=== PATIENT | male | born 1950 | race African-American/Black ===

== ENCOUNTER 2016-06-07 11:19 | Emergency (ER) | payer OTHER ==
[~2016-06-07 11:19] MED LIST: Sodium Chloride 0.9% 1,000 ML BAG ONE
[2016-06-07] MEDS ORDERED: Ondansetron HCl/PF 4 MG/2 ML Vial ONE (11:47)
[2016-06-07 11:50] LABS: #Basophils 0.1 thou/uL (0.0-0.2); #Lymphocytes 1.1 thou/uL (1.20-3.40); #Monocytes 0.7 thou/uL (0.11-0.59); #Neutrophils 8.4 thou/uL (1.40-6.50); %Basophils 1.4 % (0.0-1.0); %Lymphocytes 10.5 % (21.0-51.0); Hemoglobin 16.8 g/dL (14.0-18.0); Mean Corpuscular Hemoglobin 30.4 pg (27.0-31.0); Mean Corpuscular Volume 94.8 fl (80.0-94.0); Mean Platelet Volume 7.8 fL (7.4-10.4); Platelet Count 234 thou/uL (130-400); RBC Distribution Width 13.3 % (11.5-14.5); Red Blood Cell (RBC) Count 5.53 mill/uL (4.70-6.10); White Blood Cell (WBC) Count 10.3 thou/uL (4.8-10.8)
[2016-06-07 12:20] LABS: Lactic Acid 1.3 mmol/L (0.5-2.2)
[2016-06-07 12:24] LABS: ALT (SGPT) 66 U/L (0-55); AST (SGOT) 39 U/L (5-34); Albumin 4.5 g/dL (3.4-4.8); Alkaline Phosphatase 73 U/L (40-150); Anion Gap 18 mmol/L (10-20); BUN (Urea Nitrogen) 15 mg/dL (8.4-25.7); Bilirubin, Total 1.1 mg/dL (0.2-1.2); Calc. Creatinine Clearance 0 mL/min (70-130); Calcium 9.2 mg/dL (7.8-10.44); Carbon Dioxide 21 mmol/L (23-31); Chloride 102 mmol/L (98-107); Estimated GFR-MDRD 77; Globulin 3.4 g/dL (2.4-3.5); Glucose 122 mg/dL (80-115); Lipase 24 U/L (8-78); Magnesium 2.4 mg/dL (1.6-2.6); Potassium 3.9 mmol/L (3.5-5.1); Protein, Total 7.9 g/dL (5.8-8.1); Sodium 137 mmol/L (136-145)
--- NOTE | 2016-06-07 13:31 | ERRECORD ---
[facility] EMERGENCY RECORD HPI NAUSEA/VOMITING/DIARRHEA (11:51 ABUS) CHIEF COMPLAINT: Patient presents for evaluation of nausea, Patient presents for evaluation of vomiting, Patient presents for evaluation of diarrhea, Patient presents for evaluation of dehydration. HISTORIAN: History provided by patient, 65 yr old M with PMH of BPH who comes in at the referral for Dr Law with concerns for dehydration in context of N/V/D x 2 days. No fever, recent travel. LOCATION MALE: No localizing symptoms. QUALITY: Unable to describe the quality of the pain. SEVERITY: Currently symptoms are moderate, Current severity of pain rated as 0/10. TIME COURSE: Gradual onset of symptoms, 2, days priror to arrival, Symptoms are worsening. ASSOCIATED WITH MALE: No associated symptoms. EXACERBATED BY: Patient's condition exacerbated by nothing. RELIEVED BY: Patient's condition relieved by nothing. ROS (11:52 ABUS) CONSTITUTIONAL: Negative constitutional review of systems, Historian denies chills, denies fever. ENT: Negative ears, nose, throat review of systems, Historian denies rhinorrhea, denies sore throat. CARDIOVASCULAR: Negative cardiovascular review of systems, Historian denies chest pain, denies palpitations. RESPIRATORY: Negative respiratory review of systems, Historian denies cough, denies shortness of breath. GI: Historian reports diarrhea, reports nausea, reports vomiting. MUSCULOSKELETAL: Negative musculoskeletal review of systems, Historian denies back pain, denies fall, denies injury, denies neck pain. SKIN: Negative skin review of systems, Historian denies rash, denies skin changes. NEUROLOGIC: Negative neurologic review of systems, Historian denies headache. PAST MEDICAL HISTORY (11:34 CJ) MEDICAL HISTORY: Flu vaccine up to date, Tetanus not up to date, Pneumococcal vaccine not up to date, ENLARGED PROSTATE. MALE SURGICAL HISTORY: "AKALASIA SX"; ESOPHAGUS SX. PSYCHIATRIC HISTORY: Notes: DENIES. SOCIAL HISTORY: Patient denies alcohol use, Patient denies drug use, Patient has no smoking history. KNOWN ALLERGIES Darvocet-N 100 CURRENT MEDICATIONS (11:36 [facility]) &a-1R&a+25V*p+0X*[id number]*c202B*c15G*c2P*p-0X&a-25V&a+1R Name: Dennis Cohen : 1950 M65 MedRec: [id number] AcctNum: [id number] Prepared: FriJun 07, 2016 13:42 by Interface Page 1 of 3 pMD [facility] EMERGENCY RECORD aspirin: TABLET : Strength - 81 mg : ORAL Patient Dose: 81 mg Oral once a day. Flomax: CAPSULE, EXT RELEASE 24 HR : Strength - 0.4 mg : ORAL Patient Dose: 0.4 mg Oral once a day. VITAL SIGNS VITAL SIGNS: BP: 137/78, Pulse: 86, Resp: 18, Temp: 98.2 (Tympanic), O2 sat: 97 on Room Air, Time: 06/07/2016 11:29. (11:29 SFRE) Pain: 0, Time: 06/07/2016 11:31. (11:31 CJEF) BP: 133/76, Pulse: 61, Resp: 19, Pain: 0, O2 sat: 95 on Room Air, Time: 06/07/2016 11:52. (11:52 CJEF) BP: 156/84, Pulse: 68, Resp: 17, Pain: 0, O2 sat: 99 on Room Air, Time: 06/07/2016 12:28. (12:28 CJEF) BP: 139/74, Pulse: 67, Resp: 18, O2 sat: 100 on Room Air, Time: 06/07/2016 13:14. (13:14 CJEF) BP: 126/73, Pulse: 64, Resp: 19, Temp: 98.5 (Oral), Pain: 0, O2 sat: 100 on Room Air, Time: 06/07/2016 13:38. (13:38 CJEF) PHYSICAL EXAM (11:52 ABUS) CONSTITUTIONAL: Vital signs reviewed, Patient afebrile, Pulse normal, Blood pressure normal, Respiratory rate normal, Patient appears non toxic, Patient appears pain free, Patient alert and oriented to person, place and time. NECK: Neck exam normal, Neck exam included findings of normal range of motion, Trachea midline, no meningeal signs, no cervical adenopathy, no tenderness. RESPIRATORY CHEST: Respiratory and chest exam normal, Respiratory exam included findings of no respiratory distress, Breath sounds clear. CARDIOVASCULAR: Cardiovascular assessment normal, Cardiovascular exam included findings of heart rate regular rate and rhythm, Heart sounds normal. ABDOMEN MALE: Abdominal exam included findings of abdomen nontender, Bowel sounds normal, no distension, no mass, no pulsatile masses, no peritoneal signs, no rigidity, no guarding, no rebound, Rovsing's sign absent. BACK: Back exam normal, Back exam included findings of normal inspection, range of motion normal, no tenderness. NEURO: Neuro exam normal, Neuro exam findings include patient oriented to person, place and time, Speech normal, Gait normal. SKIN: Skin exam normal, Skin exam included findings of skin warm, dry, and normal in color, no rash. MEDICATION ADMINISTRATION SUMMARY Drug Name: *sodium chloride 0.9 % intravenous, Dose Ordered: 1 L, Route: IV Fluid Infusion, Status: Given, Time: 12:37 06/07/2016, &a-1R&a+25V*p+0X*l9121B*c202B*c15G*c2P*p-0X&a-25V&a+1R Name: Dennis Cohen : 1950 M65 MedRec: [id number] AcctNum: [id number] Prepared: FriJun 07, 2016 13:42 by Interface Page 2 of 3 pMD [facility] EMERGENCY RECORD Drug Name: *sodium chloride 0.9 % intravenous, Dose Ordered: 1 L, Route: IV Fluid Infusion, Status: Given, Time: 11:51 06/07/2016, Drug Name: Zofran intravenous, Dose Ordered: 4 mg, Route: IV Push, Status: Given, Time: 11:50 06/07/2016, *Additional information available in notes, Detailed record available in Medication Service section. DOCTOR NOTES (11:53 ABUS) TEXT: 65 yr old M with PMH of BPH who comes in at the referral for Dr Law with concerns for dehydration in context of N/V/D x 2 days Exam: Dry mucous membranes DDX: dehydration, viral gastroenteritis, gastritis, electrolyte abnormality Plan: IV, IVF, antiemetics, labs, reassess Update: Pt feels better and wants to go home with return precautions. PROBLEM LIST No recorded problems DIAGNOSIS (13:24 ABUS) FINAL: PRIMARY: Nausea with vomiting. PRESCRIPTION (13:23 ABUS) promethazine oral: TABLET : 25 mg : ORAL : Quantity: 1 Unit: tab(s) Route: ORAL Schedule: every 8 hours PRN Dispense: 5 Unit: tab(s) May substitute. Refills: No Refills . NOTES: No Refills. Zofran ODT: TABLET,DISINTEGRATING : 4 mg : ORAL : Quantity: 1 Unit: tab(s) Route: ORAL Schedule: every 8 hours PRN Dispense: 5 Unit: tab(s) May substitute. Refills: No Refills . NOTES: ^s=No Refills No Refills. DISPOSITION PATIENT: Disposition Type: Discharge, Disposition: *Discharge Home, Condition: Good. (13:24 ABUS) Patient left the department. (13:38 CJDRU) Romano: SHELIA=MD Fidel, Ilya LAWRENCE=SAMMIE Melendrez, Ana Laura SFRE=SAMMIE Corado, Ligia &a-1R&a+25V*p+0X*[id number]*c202B*c15G*c2P*p-0X&a-25V&a+1R Name: Dennis Cohen Ag : 1950 M65 MedRec: [id number] AcctNum: [id number] Prepared: FriJun 07, 2016 13:42 by Interface Page 3 of 3 pMD MTDD
[2016-06-07 13:33] LABS: CKMB 0.9 ng/mL (0-6.6); Troponin I Less than 0.010 ng/mL (< 0.028)
--- NOTE | 2016-06-07 13:38 | PICIS ---
[facility] EMERGENCY RECORD TRIAGE (11:30 SFRE) TRIAGE NOTES: SENT FOR N/V/D X 1 DAY. (11:30 SFRE) PATIENT: NAME: Dennis Cohen, AGE: 65, GENDER: male, : Fri1950, TIME OF GREET: FriJun 07, 2016 11:23, PREFERRED LANGUAGE: German, ETHNICITY: Not or , ECODE BILLING MAP: [facility], SSN: [id number], Zip Code: [address], KG WEIGHT: 87.54, PHONE: CELL, , , PERSON ID: [id number], PCP: fatoumata. (11:30 SFRE) COMPLAINT: VOMMITING, DIARRHEA. (11:30 SFRE) ADMISSION: URGENCY: 3 Urgent, ADMISSION SOURCE: Home, TRANSPORT: Walk-in, BED: ED -01. (11:30 SFRE) ASSESSMENT: Assessment: PT REPORTS N/V/D THAT STARTED YESTERDAY. PT VOMITED X4 TODAY. PT WAS SENT TO ER BY PCP FOR EVALUATION. PT REPORTS SLIGHT NAUSEA AT THE TIME OF VISIT. PT DENIES ANY PAIN,. (11:34 CJEF) PAIN: No complaint of pain. (11:34 CJEF) IMMUNIZATIONS: Flu vaccine up to date, Tetanus not up to date, Pneumococcal vaccine not up to date. (11:34 CJEF) SIRS SCORING: Heart Rate 55-109 (0), Temp range 96.8-101.1 (0), respiratory rate 12-24 (0), Mental Status altered: no (0), Yes, Infection or Suspected Infection. (11:34 CJEF) TRIAGE SCREENING: Patient denies suicidal ideation, Patient denies presence of domestic violence. (11:34 CJEF) PROVIDERS: TRIAGE NURSE: Ligia Corado RN. (11:30 SFRE) VITAL SIGNS: BP 137/78, Pulse 86, Resp 18, Temp 98.2, (Tympanic), O2 Sat 97, on Room Air, Time 06/07/2016 11:29. (11:29 SFRE) Pain 0, Time 06/07/2016 11:31. (11:31 CJEF) PREVIOUS VISIT ALLERGIES: Darvocet-N 100. (11:30 SFRE) Darvocet-N 100. (11:34 CJEF) KNOWN ALLERGIES Darvocet-N 100 CURRENT MEDICATIONS (11:36 CJEF) aspirin: TABLET : Strength - 81 mg : ORAL Patient Dose: 81 mg Oral once a day. Flomax: CAPSULE, EXT RELEASE 24 HR : Strength - 0.4 mg : ORAL Patient Dose: 0.4 mg Oral once a day. VITAL SIGNS VITAL SIGNS: BP: 137/78, Pulse: 86, Resp: 18, Temp: 98.2 (Tympanic), O2 sat: 97 on Room Air, Time: 06/07/2016 11:29. (11:29 SFRE) Pain: 0, Time: 06/07/2016 11:31. (11:31 CJEF) BP: 133/76, Pulse: 61, Resp: 19, Pain: 0, O2 sat: 95 on Room Air, Time: 06/07/2016 11:52. (11:52 CJEF) &a-1R&a+25V*p+0X*s3137L*c202B*c15G*c2P*p-0X&a-25V&a+1R Name: Dennis Cohen : 1950 M65 MedRec: [id number] AcctNum: [id number] Prepared: FriJun 07, 2016 13:49 by Interface Page 1 of 10 pMD [facility] EMERGENCY RECORD BP: 156/84, Pulse: 68, Resp: 17, Pain: 0, O2 sat: 99 on Room Air, Time: 06/07/2016 12:28. (12:28 CJEF) BP: 139/74, Pulse: 67, Resp: 18, O2 sat: 100 on Room Air, Time: 06/07/2016 13:14. (13:14 CJEF) BP: 126/73, Pulse: 64, Resp: 19, Temp: 98.5 (Oral), Pain: 0, O2 sat: 100 on Room Air, Time: 06/07/2016 13:38. (13:38 CJEF) NURSING ASSESSMENT: ABDOMEN (11:34 CJEF) CONSTITUTIONAL: Complex assessment performed, Patient arrives, via hospital wheelchair, Gait steady, History obtained from patient, Patient appears, generally ill, Patient cooperative, Patient alert, Oriented to person, place and time, Skin warm, Skin dry, Skin normal in color, Mucous membranes pink, Mucous membranes moist, Patient is well-groomed, PT REPORTS N/V/D THAT STARTED YESTERDAY. PT VOMITED X4 TODAY. PT WAS SENT TO ER BY PCP FOR EVALUATION. PT REPORTS SLIGHT NAUSEA AT THE TIME OF VISIT. PT DENIES ANY PAIN,. PAIN: Patient rates pain as 0 out of 10. ABDOMEN: Abdomen assessment findings include abdomen symmetrical, Abdomen soft, non-tender, Associated with nausea, Associated with vomiting, history of vomiting, Number of times: 4, Associated with diarrhea, watery, Associated with appetite change, decrease. GENITOURINARY MALE: no associated urinary complaints. NOTES: Patient tolerated procedure well. SAFETY: Side rails up, Cart/Stretcher in lowest position, Family at bedside, Call light within reach, Hospital ID band on. NURSING ASSESSMENT: FALL RISK (11:36 CJEF) FALL RISK: Total score 0, No risk for fall. HENDRICH II FALL RISK: Able to rise in a single movement; no loss of balance with steps(0), Total score 0, Score less than 5. Patient not high risk for falls. NURSING ASSESSMENT: SKIN (11:36 CJEF) SKIN: Skin assessment findings include skin warm, Skin dry, Skin normal in color. CANDY SCALE: (4) Sensory perception has no impairment, (4) Skin is rarely moist, (4) Patient walks frequently, (4) No mobility limitations, (3) Adequate nutrition, (3) Patient has no apparent problem moving, Candy Risk Total: 22. NOTES: Patient tolerated procedure well. SAFETY: Side rails up, Cart/Stretcher in lowest position, Family at bedside, Call light within reach, Hospital ID band on. NURSING PROCEDURE: BEDSIDE SIRS TESTING (11:52 CJEF) SCORES: Heart Rate 55-109 (0), Temp range 96.8-101.1 (0), respiratory rate 12-24 (0), Mental Status altered: no (0), Yes, Infection or Suspected Infection. &a-1R&a+25V*p+0X*x6503H*c202B*c15G*c2P*p-0X&a-25V&a+1R Name: Dennis Cohen : 1950 M65 MedRec: [id number] AcctNum: [id number] Prepared: FriJun 07, 2016 13:49 by Interface Page 2 of 10 D [facility] EMERGENCY RECORD SIRS: Yes, Infection or Suspected Infection. NURSING PROCEDURE: FOOD EDITOR (11:30 CJEF) PATIENT IDENTIFIER: Patient actively involved in identification process, Patient's identity verified by patient stating name, Patient's identity verified by patient stating date. FOOD EDITOR: Cardiac monitoring indicated for N/V, Patient placed on court recording monitor, Heart rate: 64, showing normal sinus rhythm, Patient placed on non-invasive blood pressure monitor, Patient placed on continuous pulse oximetry, Adult/pediatric oxisensor applied. FOLLOW-UP: After procedure, alarms set and on, After procedure, patient tolerating monitoring. NOTES: Patient tolerated procedure well. SAFETY: Side rails up, Cart/Stretcher in lowest position, Family at bedside, Call light within reach, Hospital ID band on. NURSING PROCEDURE: DISCHARGE NOTE (13:38 CJ) DISCHARGE: Patient discharged to home, ambulating without assistance, family driving, accompanied by //partner, Summary of Care printed/ provided, Patient requested and was provided an electronic copy of Discharge Instructions, Transition record given to patient, Discharge instructions given to patient, Simple or moderate discharge teaching performed, Prescriptions given and instructions on side effects given, Medication reconciliation form given, Above person(s) verbalized understanding of discharge instructions and follow-up care, Patient treated and evaluated by physician. BELONGINGS: Belongings remain with patient. NOTES: Patient tolerated procedure well. SAFETY: Side rails up, Cart/Stretcher in lowest position, Family at bedside, Call light within reach, Hospital ID band on. NURSING PROCEDURE: IV PATIENT IDENITIFIER: Patient actively involved in identification process, Patient's identity verified by patient stating name, Patient's identity verified by patient stating date. (11:46 CJEF) IV SITE 1: IV therapy indicated for hydration, IV therapy indicated for medication administration, IV established, to the right antecubital, using an 18 gauge catheter, in one attempt, IV site prepped with CHLORAPREP, Saline lock established, Flushed with normal saline (mls): 10, Labs drawn at time of placement, labeled in the presence of the patient and sent to lab. (11:46 CJEF) FOLLOW-UP SITE 1: After procedure, 2x2 dressing applied, IV discontinued, due to patient being discharged, catheter intact. (13:36 CJEF) NOTES: Patient tolerated procedure well. (11:46 CJEF) SAFETY: Side rails up, Cart/Stretcher in lowest position, Family at bedside, Call light within reach, Hospital ID band on. (11:46 &a-1R&a+25V*p+0X*v0281S*c202B*c15G*c2P*p-0X&a-25V&a+1R Name: Dennis Cohen : 1950 M65 MedRec: [id number] AcctNum: [id number] Prepared: FriJun 07, 2016 13:49 by Interface Page 3 of 10 D [facility] EMERGENCY RECORD CJEF) NURSING PROCEDURE: NURSE NOTES NURSES NOTES: Patient in no apparent distress, Patient resting quietly, Notes: PT RESTING IN BED QUIETLY WITH FAMILY AT BEDSIDE. NO DISTRESS NOTED. (11:51 CJEF) Patient in no apparent distress, Patient resting quietly, Warm blanket given to patient, Notes: PT RESTING IN BED QUIETLY WITH FAMILY AT BEDSIDE. NO DISTRESS NOTED. (12:29 CJEF) Patient in no apparent distress, Patient resting quietly, Notes: PT RESTING IN BED QUIETLY WITH FAMILY AT BEDSIDE. NO DISTRESS NOTED. (12:38 CJEF) ORDER DETAILS Order Name: B type Natriuretic Peptide, Status: Active, Time: 11:31 06/07/2016, User: SHELIA, - Ordered for: MD Parra Anthony, - Entered by: MD Parra Anthony - FriJun 07, 2016 11:31, - Quantity: 1, Order Name: FOOD EDITOR ED, Status: Done, Time: 11:36 06/07/2016, User: CJDRU, - Ordered for: MD Parra Anthony, - Entered by: MD Parra Anthony - FriJun 07, 2016 11:34, - Quantity: 1, Order Name: Cardiac Profile w/CKMB & Troponin - I, Status: Active, Time: 11:31 06/07/2016, User: AB, - Ordered for: MD Parra Anthony, - Entered by: MD Parra Anthony - FriJun 07, 2016 11:31, - Quantity: 1, Order Name: CBC with Differential, Status: Active, Time: 11:31 06/07/2016, User: ABUS, - Ordered for: MD Parra Anthony, - Entered by: MD Parra Anthony - FriJun 07, 2016 11:31, - Quantity: 1, Order Name: Comprehensive Metabolic Panel, Status: Active, Time: 11:31 06/07/2016, User: ABUS, - Ordered for: MD Parra Anthony, - Entered by: MD Parra Anthony - FriJun 07, 2016 11:31, - Quantity: 1, Order Name: Lactic Acid, Status: Active, Time: 11:36 06/07/2016, User: ABUS, - Ordered for: MD Parra Anthony, - Entered by: MD Parra Anthony - FriJun 07, 2016 11:36, - Quantity: 1, Order Name: Lipase, Status: Active, Time: 11:31 06/07/2016, User: ABUS, - Ordered for: MD Parra Anthony, - Entered by: MD Parra Anthony - FriJun 07, 2016 11:31, - Quantity: 1, Order Name: Magnesium, Status: Active, Time: 11:31 06/07/2016, User: &a-1R&a+25V*p+0X*s0093N*c202B*c15G*c2P*p-0X&a-25V&a+1R Name: Dennis Cohen : 1950 M65 MedRec: [id number] AcctNum: [id number] Prepared: FriJun 07, 2016 13:49 by Interface Page 4 of 10 pMD [facility] EMERGENCY RECORD ABUS, - Ordered for: MD Parra Anthony, - Entered by: MD Parra Anthony - FriJun 07, 2016 11:31, - Quantity: 1, Order Name: SALINE LOCK, Status: Done, Time: 11:45 06/07/2016, User: [facility], - Ordered for: MD Parra Anthony, - Entered by: MD Parra Anthony - FriJun 07, 2016 11:34, - Quantity: 1. MEDICATION ADMINISTRATION SUMMARY Drug Name: *sodium chloride 0.9 % intravenous, Dose Ordered: 1 L, Route: IV Fluid Infusion, Status: Given, Time: 12:37 06/07/2016, Drug Name: *sodium chloride 0.9 % intravenous, Dose Ordered: 1 L, Route: IV Fluid Infusion, Status: Given, Time: 11:51 06/07/2016, Drug Name: Zofran intravenous, Dose Ordered: 4 mg, Route: IV Push, Status: Given, Time: 11:50 06/07/2016, *Additional information available in notes, Detailed record available in Medication Service section. MEDICATION SERVICE sodium chloride 0.9 % intravenous: Order: sodium chloride 0.9 % intravenous (0.9 % sodium chloride) - Dose: 1 L : IV Fluid Infusion Schedule: Now Notes: (Bolus) Ordered by: Ilya Parra MD Entered by: Ilya Parra MD FriJun 07, 2016 11:36 Documented as given by: Ana Laura Melendrez RN FriJun 07, 2016 11:51 Patient, Medication, Dose, Route and Time verified prior to administration. Amount given: 1 L, IV SITE #1 IV fluids established for hydration, IV SITE #1 into right antecubital, IV SITE #1 1st bag hung, IV SITE #1 bolus of 1000 ml established, via primary tubing, Awake and alert- acceptable, Connections checked prior to administration, Line traced prior to administration, Catheter placement confirmed via flush prior to administration, IV site without signs or symptoms of infiltration during medication administration, No swelling during administration, No drainage during administration, IV flushed after administration, Correct patient, time, route, dose and medication confirmed prior to administration, Patient advised of actions and side-effects prior to administration, Allergies confirmed and medications reviewed prior to administration, Patient tolerated procedure well, Patient in position of comfort, Side rails up, Cart in lowest position, Family at bedside. : Follow Up : Response assessment performed, No signs or symptoms of allergic reaction noted, _IV SITE #1:_, IV fluid infusion discontinued, on FriJun 07, 2016 12:29, 40 minutes, ., Total amount infused: 1 L, Advised not to ambulate without assistance, &a-1R&a+25V*p+0X*k2151C*c202B*c15G*c2P*p-0X&a-25V&a+1R Name: Dennis Cohen : 1950 M65 MedRec: [id number] AcctNum: [id number] Prepared: FriJun 07, 2016 13:49 by Interface Page 5 of 10 pMD [facility] EMERGENCY RECORD Patient in position of comfort, Side rails up, Cart in lowest position, Family at bedside. (12:29 [facility]) sodium chloride 0.9 % intravenous: Order: sodium chloride 0.9 % intravenous (0.9 % sodium chloride) - Dose: 1 L : IV Fluid Infusion Schedule: Now Notes: (Bolus) Ordered by: Ilya Parra MD Entered by: Ilya Parra MD FriJun 07, 2016 12:36 Documented as given by: Ana Laura Melendrez RN FriJun 07, 2016 12:37 Patient, Medication, Dose, Route and Time verified prior to administration. Amount given: 1 L, IV SITE #1 IV fluids established for hydration, IV SITE #1 into right antecubital, IV SITE #1 2nd bag hung, IV SITE #1 bolus of 1000 ml established, via primary tubing, Awake and alert- acceptable, Connections checked prior to administration, Line traced prior to administration, Catheter placement confirmed via flush prior to administration, IV site without signs or symptoms of infiltration during medication administration, No swelling during administration, No drainage during administration, IV flushed after administration, Correct patient, time, route, dose and medication confirmed prior to administration, Patient advised of actions and side-effects prior to administration, Allergies confirmed and medications reviewed prior to administration, Patient tolerated procedure well, Patient in position of comfort, Side rails up, Cart in lowest position, Family at bedside. : Follow Up : Response assessment performed, No signs or symptoms of allergic reaction noted, _IV SITE #1:_, IV fluid infusion discontinued, on FriJun 07, 2016 13:14, 40 minutes, ., Total amount infused: 1 L, Advised not to ambulate without assistance, Patient in position of comfort, Side rails up, Cart in lowest position, Family at bedside. (13:14 [facility]) Zofran intravenous: Order: Zofran intravenous (ondansetron HCl) - Dose: 4 mg : IV Push Schedule: Now Ordered by: Ilya Parra MD Entered by: Ilya Parra MD FriJun 07, 2016 11:35 Documented as given by: Ana Laura Melendrez RN FriJun 07, 2016 11:50 Patient, Medication, Dose, Route and Time verified prior to administration. Amount given: 4MG, IV SITE #1 IVP, initial medication, Slowly, Awake and alert- acceptable, Connections checked prior to administration, Line traced prior to administration, Catheter placement confirmed via flush prior to administration, IV site without signs or symptoms of infiltration during medication administration, No swelling during administration, No drainage during administration, IV flushed after administration, Correct patient, time, route, dose and medication confirmed prior to administration, Patient advised of actions and side-effects prior to administration, Allergies confirmed and medications reviewed prior to administration, Patient tolerated &a-1R&a+25V*p+0X*a0779H*c202B*c15G*c2P*p-0X&a-25V&a+1R Name: Dennis Cohen : 1950 M65 MedRec: [id number] AcctNum: [id number] Prepared: FriJun 07, 2016 13:49 by Interface Page 6 of 10 pMD [facility] EMERGENCY RECORD procedure well, Patient in position of comfort, Side rails up, Cart in lowest position, Family at bedside. : Follow Up : Response assessment performed, No signs or symptoms of allergic reaction noted, Advised not to ambulate without assistance, Patient in position of comfort, Side rails up, Cart in lowest position, Family at bedside. (12:29 CJEF) HPI NAUSEA/VOMITING/DIARRHEA (11:51 ABUS) CHIEF COMPLAINT: Patient presents for evaluation of nausea, Patient presents for evaluation of vomiting, Patient presents for evaluation of diarrhea, Patient presents for evaluation of dehydration. HISTORIAN: History provided by patient, 65 yr old M with PMH of BPH who comes in at the referral for Dr Law with concerns for dehydration in context of N/V/D x 2 days. No fever, recent travel. LOCATION MALE: No localizing symptoms. QUALITY: Unable to describe the quality of the pain. SEVERITY: Currently symptoms are moderate, Current severity of pain rated as 0/10. TIME COURSE: Gradual onset of symptoms, 2, days priror to arrival, Symptoms are worsening. ASSOCIATED WITH MALE: No associated symptoms. EXACERBATED BY: Patient's condition exacerbated by nothing. RELIEVED BY: Patient's condition relieved by nothing. ROS (11:52 ABUS) CONSTITUTIONAL: Negative constitutional review of systems, Historian denies chills, denies fever. ENT: Negative ears, nose, throat review of systems, Historian denies rhinorrhea, denies sore throat. CARDIOVASCULAR: Negative cardiovascular review of systems, Historian denies chest pain, denies palpitations. RESPIRATORY: Negative respiratory review of systems, Historian denies cough, denies shortness of breath. GI: Historian reports diarrhea, reports nausea, reports vomiting. MUSCULOSKELETAL: Negative musculoskeletal review of systems, Historian denies back pain, denies fall, denies injury, denies neck pain. SKIN: Negative skin review of systems, Historian denies rash, denies skin changes. NEUROLOGIC: Negative neurologic review of systems, Historian denies headache. PAST MEDICAL HISTORY (11:34 CJ) MEDICAL HISTORY: Flu vaccine up to date, Tetanus not up to date, Pneumococcal vaccine not up to date, ENLARGED PROSTATE. MALE SURGICAL HISTORY: "AKALASIA SX"; ESOPHAGUS SX. PSYCHIATRIC HISTORY: Notes: DENIES. &a-1R&a+25V*p+0X*o0657G*c202B*c15G*c2P*p-0X&a-25V&a+1R Name: Dennis Cohen : 1950 M65 MedRec: [id number] AcctNum: [id number] Prepared: FriJun 07, 2016 13:49 by Interface Page 7 of 10 pMD [facility] EMERGENCY RECORD SOCIAL HISTORY: Patient denies alcohol use, Patient denies drug use, Patient has no smoking history. PHYSICAL EXAM (11:52 ABUS) CONSTITUTIONAL: Vital signs reviewed, Patient afebrile, Pulse normal, Blood pressure normal, Respiratory rate normal, Patient appears non toxic, Patient appears pain free, Patient alert and oriented to person, place and time. NECK: Neck exam normal, Neck exam included findings of normal range of motion, Trachea midline, no meningeal signs, no cervical adenopathy, no tenderness. RESPIRATORY CHEST: Respiratory and chest exam normal, Respiratory exam included findings of no respiratory distress, Breath sounds clear. CARDIOVASCULAR: Cardiovascular assessment normal, Cardiovascular exam included findings of heart rate regular rate and rhythm, Heart sounds normal. ABDOMEN MALE: Abdominal exam included findings of abdomen nontender, Bowel sounds normal, no distension, no mass, no pulsatile masses, no peritoneal signs, no rigidity, no guarding, no rebound, Rovsing's sign absent. BACK: Back exam normal, Back exam included findings of normal inspection, range of motion normal, no tenderness. NEURO: Neuro exam normal, Neuro exam findings include patient oriented to person, place and time, Speech normal, Gait normal. SKIN: Skin exam normal, Skin exam included findings of skin warm, dry, and normal in color, no rash. EVENTS TRANSFER: Triage to Emergency Main ED -01. (FriJun 07, 2016 11:30 SFRE) Removed from Emergency Main ED -01. (13:38 CJ) DOCTOR NOTES (11:53 ABUS) TEXT: 65 yr old M with PMH of BPH who comes in at the referral for Dr Law with concerns for dehydration in context of N/V/D x 2 days Exam: Dry mucous membranes DDX: dehydration, viral gastroenteritis, gastritis, electrolyte abnormality Plan: IV, IVF, antiemetics, labs, reassess Update: Pt feels better and wants to go home with return precautions. PROBLEM LIST No recorded problems DIAGNOSIS (13:24 ABUS) FINAL: PRIMARY: Nausea with vomiting. &a-1R&a+25V*p+0X*w6282P*c202B*c15G*c2P*p-0X&a-25V&a+1R Name: Dennis Cohen : 1950 M65 MedRec: [id number] AcctNum: [id number] Prepared: FriJun 07, 2016 13:49 by Interface Page 8 of 10 pMD [facility] EMERGENCY RECORD DISPOSITION PATIENT: Disposition Type: Discharge, Disposition: *Discharge Home, Condition: Good. (13:24 ABUS) Patient left the department. (13:38 CJ) INSTRUCTION (13:24 ABUS) DISCHARGE: NAUSEA VOMITING 7YADULT. FOLLOWUP: MD Fatoumata, Tony, [facility], [address] [place] [id number], , Follow up with Primary Care Physician in 1-2 days. SPECIAL: As discussed in the ER before you left, please follow up with your primary care doctor or call the referral made for you here in the ED today to establish outpatient follow up for your medical care. Please come back sooner if you start to develop fever, worsening pain, nausea and vomiting, or symptoms that are new or symptoms the concern you. PRESCRIPTION (13:23 ABUS) promethazine oral: TABLET : 25 mg : ORAL : Quantity: 1 Unit: tab(s) Route: ORAL Schedule: every 8 hours PRN Dispense: 5 Unit: tab(s) May substitute. Refills: No Refills . NOTES: No Refills. Zofran ODT: TABLET,DISINTEGRATING : 4 mg : ORAL : Quantity: 1 Unit: tab(s) Route: ORAL Schedule: every 8 hours PRN Dispense: 5 Unit: tab(s) May substitute. Refills: No Refills . NOTES: ^s=No Refills No Refills. IMAGING DOCTORS OFFICE: Image captured from scanner. (12:29 [facility]) *DISCHARGE INSTRUCTIONS RECEIPT: Image captured from scanner. (13:39 [facility]) Page 2 added. Image captured from scanner. (13:40 CJ) *SUPPLY CHARGE SHEET: Image captured from scanner. (13:40 CJ) ADMIN (13:25 ABUS) DIGITAL SIGNATURE: MD Parra Anthony. RESULTS LABORATORY: CBC with Differential Collection DT: FriJun 07, 2016 11:47, White Blood Cell (WBC) Count 10.3 thou/uL, Range (4.8-10.8), Red Blood Cell (RBC) Count 5.53 mill/uL, Range (4.70-6.10), Hemoglobin 16.8 g/dL, Range (14.0-18.0), *Hematocrit 52.4 - H %, Range (42.0-52.0), *Mean Corpuscular Volume 94.8 - H fl, Range (80.0-94.0), Mean Corpuscular Hemoglobin 30.4 pg, Range (27.0-31.0), Mean Corpuscular HGB CONC 32.0 g/dL, Range (32.0-36.0), &a-1R&a+25V*p+0X*x7855C*c202B*c15G*c2P*p-0X&a-25V&a+1R Name: Dennis Cohen : 1950 M65 MedRec: [id number] AcctNum: [id number] Prepared: FriJun 07, 2016 13:49 by Interface Page 9 of 10 pMD [facility] EMERGENCY RECORD RBC Distribution Width 13.3 %, Range (11.5-14.5), Platelet Count 234 thou/uL, Range (130-400), Mean Platelet Volume 7.8 fL, Range (7.4-10.4), *%Neutrophils 81.0 - H %, Range (42.0-75.0), *%Lymphocytes 10.5 - L %, Range (21.0-51.0), %Monocytes 7.0 %, Range (0.0-10.0), %Eosinophils 0.0 %, Range (0.0-10.0), *%Basophils 1.4 - H %, Range (0.0-1.0), *#Neutrophils 8.4 - H thou/uL, Range (1.40-6.50), *#Lymphocytes 1.1 - L thou/uL, Range (1.20-3.40), *#Monocytes 0.7 - H thou/uL, Range (0.11-0.59), #Eosinphils 0.0 thou/uL, Range (0.0-0.7), #Basophils 0.1 thou/uL, Range (0.0-0.2). (12:00 SFRE) Lactic Acid Collection DT: FriJun 07, 2016 11:47, Lactic Acid 1.3 mmol/L, Range (0.5-2.2). (12:25 SFRE) Magnesium Collection DT: FriJun 07, 2016 11:47, Magnesium 2.4 mg/dL, Range (1.6-2.6). (12:36 ABUS) Lipase Collection DT: FriJun 07, 2016 11:47, Lipase 24 U/L, Range (8-78). (12:36 ABUS) Comprehensive Metabolic Panel Collection DT: FriJun 07, 2016 11:47, Sodium 137 mmol/L, Range (136-145), Potassium 3.9 mmol/L, Range (3.5-5.1), Chloride 102 mmol/L, Range (98-107), *Carbon Dioxide 21 - L mmol/L, Range (23-31), Anion Gap 18 mmol/L, Range (10-20), BUN (Urea Nitrogen) 15 mg/dL, Range (8.4-25.7), Creatinine 1.16 mg/dL, Range (0.7-1.3), Estimated GFR-MDRD 77 , Reference Range for Estimated GFR: Greater than 90, mL/min/1.73 m2 NOTE: The MDRD equation has not been validated for use, with the elderly (over 70 years of age), women, patients with, serious comorbid condition or persons with extremes of body size, muscle, mass, or nutritional status. , *Glucose 122 - H mg/dL, Range (80-115), Calcium 9.2 mg/dL, Range (7.8-10.44), Bilirubin, Total 1.1 mg/dL, Range (0.2-1.2), Protein, Total 7.9 g/dL, Range (5.8-8.1), NOTE: Plasma values are generally 0.3 to 0.5 g/dL higher than serum values, due to the presence of fibrinogen. , Albumin 4.5 g/dL, Range (3.4-4.8), Globulin 3.4 g/dL, Range (2.4-3.5), Alb/Glob Ratio 1.3 g/dL, Range (1.2-2.2), Alkaline Phosphatase 73 U/L, Range (40-150), *AST (SGOT) 39 - H U/L, Range (5-34), *ALT (SGPT) 66 - H U/L, Range (0-55). (12:36 ABUS) Romano: ABUS=MD Fidel, Ilya LAWRENCE=SAMMIE Melendrez, Ana Laura SFRE=SAMMIE Corado, Ligia &a-1R&a+25V*p+0X*[id number]*c202B*c15G*c2P*p-0X&a-25V&a+1R Name: Dennis Cohen : 1950 M65 MedRec: [id number] AcctNum: [id number] Prepared: FriJun 07, 2016 13:49 by Interface Page 10 of 10 pMD MTDD
== END 2016-06-07 13:30 | disposition home or self-care (01) ==
LOC: MADERS 11:19
DX: R11.2 Nausea with vomiting, unspecified (principal)
CPT/HCPCS: 80053; 82553; 83605; 83690; 83735; 83880; 84484; 85025; 96361; 96374; J2405; J7050

== ENCOUNTER 2024-03-03 07:08 | Emergency (ER) | payer MEDICARE, OTHER ==
[2024-03-03] MEDS ORDERED: Pantoprazole 40 MG VIAL ONE (07:54)
[2024-03-03] MEDS ORDERED: Ondansetron PF 4 MG/2 ML Vial ONE (07:54)
[2024-03-03] MEDS ORDERED: Ketorolac Tromethamine 30 MG (1 mL) VIAL ONE (07:54)
[2024-03-03] MEDS ORDERED: Simethicone Chewable 80 MG TAB ONE (07:54)
[2024-03-03 08:01] LABS: Hematocrit 50.3 % (42.0-52.0); Hemoglobin 15.7 g/dL (14.0-18.0); Mean Corpuscular HGB CONC 31.2 g/dL (32.0-36.0); Mean Corpuscular Hemoglobin 29.3 pg (27.0-31.0); Mean Corpuscular Volume 93.8 fl (78.0-98.0); Mean Platelet Volume 7.7 fL (7.4-10.4); Platelet Count 236 10x3/uL (130-400); RBC Distribution Width 12.8 % (11.5-14.5); Red Blood Cell (RBC) Count 5.37 mill/uL (4.70-6.10); White Blood Cell (WBC) Count 8.5 10x3/uL (4.8-10.8)
[2024-03-03 08:04] LABS: Bilirubin Negative (Negative); Blood, Urine Trace (Negative); Clarity Clear (Clear); Glucose, Urine (Dipstick) Negative (Negative); Ketone, Urine Negative (Negative); Leukocyte Small (Negative); Nitrite Negative (Negative); Protein, Urine (Dipstick) Negative (Neg-Trace); Specific Gravity, Urine 1.015 (1.005-1.030); pH, Urine 6.5 (5.0-9.0)
[2024-03-03 08:10] LABS: Band 2 % (5-11); Eosinophils 1 % (0-10); Lymphocytes 28 % (21-51); MDiff Complete? YES; Manual Diff?? YES; Monocytes 3 % (0-10); Neutrophil 66 % (42-75)
[2024-03-03 08:11] LABS: Platelet Adequacy Comment Appears Adequate; RBC Morph Comment Within Normal Limits
[2024-03-03 08:13] LABS: RBC/HPF 0-3 HPF (0-3)
[2024-03-03 08:14] LABS: Bacteria/HPF 1+ HPF (None Seen); CAUTI Indications for Culture Pelvic or flank pain; Squamous Epithelial 0-3 HPF (0-3)
[2024-03-03 08:16] LABS: Urine Culture Reflex Yes Yes
[2024-03-03 08:17] LABS: ALT (SGPT) 28 U/L (8-55); AST (SGOT) 29 U/L (5-34); Albumin 3.9 g/dL (3.4-4.8); Alkaline Phosphatase 68 U/L (40-110); Anion Gap 18 mmol/L (10-20); BUN (Urea Nitrogen) 7 mg/dL (8.4-25.7); Bilirubin, Total 0.7 mg/dL (0.2-1.2); Calc. Creatinine Clearance 0 mL/min (70-130); Calcium 9.7 mg/dL (7.8-10.44); Carbon Dioxide 21 mmol/L (23-31); Chloride 100 mmol/L (98-107); Estimated GFR 78; Glucose 132 mg/dL (83-110); Lipase 13 U/L (8-78); Protein, Total 7.9 g/dL (5.8-8.1); Sodium 135 mmol/L (136-145)
[2024-03-03] MEDS ORDERED: cefTRIAXone (ROCEPHIN) 1 GM VIAL ONE (08:59)
[2024-03-03] MEDS ORDERED: Iopamidol 370 76% 100 ML VIAL ONE (09:00)
== END 2024-03-03 09:59 | disposition home or self-care (01) ==
LOC: MADERS 07:08
DX: N39.0 Urinary tract infection, site not specified (principal); R10.13 Epigastric pain
CPT/HCPCS: 74177; 80053; 81001; 83690; 85025; 87077; 87086; 87186; J0696; J1885; J2405; J2470; Q9967; 96365; 96375